=== PATIENT | female | born 1965 | race Caucasian/White ===

== ENCOUNTER 2017-07-14 21:15 | Emergency (ER) | payer MEDICAID ==
[~2017-07-14] VITALS: Ht 160 cm; Wt 66.0 kg
[2017-07-14] MEDS ORDERED: FLUO-126 PO (21:28)
[2017-07-14] MEDS ORDERED: TRAM50TA4 PO (21:28)
[2017-07-14] MEDS ORDERED: FLUO-191 PO (21:28)
[2017-07-14] MEDS ORDERED: FLUC150T66 PO (21:28)
[2017-07-14] MEDS ORDERED: NAPR-58 PO (21:28)
[2017-07-14] MEDS ORDERED: OXYB5 PO (21:28)
[2017-07-14 22:56] LABS: BASOPHILS # (AUTO) 0.02 K/uL (0.00-0.20); BASOPHILS % (AUTO) 0.3 % (0.0-2.0); EOSINOPHILS # (AUTO) 0.13 K/uL (0.00-0.70); EOSINOPHILS % (AUTO) 1.92 % (1.0-6.0); HEMATOCRIT 37.5 % (36-46); HEMOGLOBIN 12.9 g/dL (12.0-16.0); LYMPHOCYTES # (AUTO) 3.1 K/uL (1.0-4.8); LYMPHOCYTES % (AUTO) 45.1 % (22.0-44.0); MEAN CORPUSCULAR HEMOGLOBIN 32.4 pg (26.0-34.0); MEAN CORPUSCULAR HGB CONC 34.4 G/dL (31.0-37.0); MEAN CORPUSCULAR VOLUME 94 fL (80-100); MONOCYTES # (AUTO) 0.8 K/uL (0.1-1.0); MONOCYTES % (AUTO) 11.7 % (2.0-9.0); NEUTROPHILS # (AUTO) 2.8 K/uL (1.8-7.7); NEUTROPHILS % (AUTO) 40.9 % (40.0-70.0); PLATELET COUNT (AUTO) 216 K/uL (150-450); RED BLOOD CELL COUNT(AUTO) 3.97 MIL/uL (4.00-5.20); RED CELL DISTRIBUTION WIDTH 13.7 % (11.5-14.5); WHITE BLOOD COUNT (AUTO) 6.8 K/uL (4.5-11.0)
[2017-07-14 23:16] LABS: ANION GAP 9 mmol/L (8-16); CALCIUM, TOTAL 8.8 mg/dL (8.8-10.5); CARBON DIOXIDE 27 mmol/L (22-29); CHLORIDE 103 mmol/L (98-107); CREATININE 0.69 mg/dL (0.60-1.30); GLOMERULAR FILTR. RATE CALC > 60 mL/min (>60); SODIUM SERUM 139 mmol/L (136-145); UREA NITROGEN, BLOOD 16 mg/dL (7-18)
[2017-07-14 23:21] LABS: ALANINE AMINOTRANSFERASE 22 U/L (12-78); ALBUMIN 4.1 g/dL (3.4-5.0); ASPARTATE AMINOTRANSFERASE 22 U/L (15-37); BILIRUBIN,TOTAL 0.4 mg/dL (0.1-1.0); TOTAL PROTEIN, SERUM 7.1 g/dL (6.4-8.2)
[2017-07-15 00:25] VITALS: BP 131/69
== END 2017-07-15 01:02 | disposition home or self-care (01) ==
LOC: EMS 21:17
DX: N93.8 Other specified abnormal uterine and vaginal bleeding (principal); Z88.1 Allergy status to other antibiotic agents; Z88.2 Allergy status to sulfonamides; Z88.8 Allergy status to other drugs, medicaments and biological substances
CPT/HCPCS: 76830; 76856; 99285

== ENCOUNTER 2018-12-16 15:49 | Emergency (ER) | payer SELFPAY ==
[~2018-12-16] VITALS: Ht 165.1 cm; Wt 81.8 kg
[~2018-12-16 15:49] MED LIST: FLUC150T66 PO; FLUO-126 PO; FLUO-191 PO; NAPR-58 PO; OXYB5 PO; TRAM50TA4 PO
[2018-12-16 15:56] VITALS: BP 156/96
[2018-12-16 18:01] LABS: BASOPHILS % (AUTO) 0.5 % (0.0-2.0); HEMATOCRIT 40.6 % (36-46); HEMOGLOBIN 13.7 g/dL (12.0-16.0); LYMPHOCYTES # (AUTO) 2.4 K/uL (1.0-4.8); LYMPHOCYTES % (AUTO) 35.1 % (22.0-44.0); MEAN CORPUSCULAR HEMOGLOBIN 31.2 pg (26.0-34.0); MEAN CORPUSCULAR HGB CONC 33.7 G/dL (31.0-37.0); MEAN CORPUSCULAR VOLUME 92 fL (80-100); MONOCYTES # (AUTO) 0.6 K/uL (0.1-1.0); MONOCYTES % (AUTO) 8.3 % (2.0-9.0); NEUTROPHILS # (AUTO) 3.8 K/uL (1.8-7.7); NEUTROPHILS % (AUTO) 55.1 % (40.0-70.0); PLATELET COUNT (AUTO) 305 K/uL (150-450); RED CELL DISTRIBUTION WIDTH 13.6 % (11.5-14.5)
[2018-12-16 18:10] LABS: ANION GAP 12 mmol/L (8-16); CALCIUM, TOTAL 9.3 mg/dL (8.8-10.5); CARBON DIOXIDE 27 mmol/L (22-29); CHLORIDE 102 mmol/L (98-107); CREATININE 0.61 mg/dL (0.60-1.30); GLOMERULAR FILTR. RATE CALC > 60 mL/min (>60); GLUCOSE,RANDOM 118 mg/dL (70-110); POTASSIUM 3.7 mmol/L (3.5-5.1); SODIUM SERUM 141 mmol/L (136-145); UREA NITROGEN, BLOOD 6 mg/dL (7-18)
[2018-12-16 18:15] LABS: ALANINE AMINOTRANSFERASE 24 U/L (12-78); ALBUMIN 3.8 g/dL (3.4-5.0); ALKALINE PHOSPHATASE 108 U/L (46-116); ASPARTATE AMINOTRANSFERASE 22 U/L (15-37); BILIRUBIN,TOTAL 0.4 mg/dL (0.1-1.0); LIPASE 134 U/L (73-393); TOTAL PROTEIN, SERUM 7.5 g/dL (6.4-8.2)
== END 2018-12-16 19:54 | disposition home or self-care (01) ==
LOC: EMS 15:50
DX: R10.84 Generalized abdominal pain (principal); Z88.8 Allergy status to other drugs, medicaments and biological substances; Z79.899 Other long term (current) drug therapy
CPT/HCPCS: 36415; 80053; 83690; 84484; 85025; 85610; 85730; 99283; G0480

== ENCOUNTER 2023-11-23 21:42 | Emergency (ER) | payer SELFPAY ==
[~2023-11-23] VITALS: Ht 160 cm; Wt 63.6 kg
[~2023-11-23 21:42] MED LIST changes: +FLUC150T61 PO; -FLUC150T66 PO; -FLUO-126 PO; +FLUO-177 PO; -FLUO-191 PO; +FLUO20CA36 PO; +NAPR-1025 PO; -NAPR-58 PO; -OXYB5 PO; +OXYB5TAB20 PO
[2023-11-23 22:04] VITALS: BP 129/79; PULSE 84; RESP 18; TEMP 98.4
== END 2023-11-23 22:34 | disposition left against medical advice (07) ==
LOC: EMS 21:42
DX: Z53.21 Procedure and treatment not carried out due to patient leaving prior to being seen by health care provider (principal)

== ENCOUNTER 2025-05-16 14:32 | Emergency (ER) | payer OTHER ==
[~2025-05-16] VITALS: Ht 160 cm; Wt 59.1 kg
[~2025-05-16 14:32] MED LIST changes: +FLUO-418 PO; -FLUO20CA36 PO; -NAPR-1025 PO; +NAPR-1196 PO
[2025-05-16 14:49] VITALS: BP 138/62; PULSE 92; RESP 20; TEMP 98; O2SAT 94
[2025-05-16] MEDS: FLUORESCEIN SODIUM 1 MG STRIP OU ONE (17:04)
[2025-05-16] MEDS: PROPARACAINE HCL 0.5% 15 ML OPHTHALMIC SOLUTION OU ONE (17:04)
[2025-05-16] MEDS: OFLOXACIN 0.3% 5 ML OPHTHALMIC SOLUTION OU ONE (18:21)
== END 2025-05-16 18:35 | disposition home or self-care (01) ==
LOC: EMS 14:33
DX: H59.89 Other postprocedural complications and disorders of eye and adnexa, not elsewhere classified (principal); Z88.2 Allergy status to sulfonamides; Z88.1 Allergy status to other antibiotic agents; Z79.899 Other long term (current) drug therapy
CPT/HCPCS: 99283